=== PATIENT | female | born 1980 | race Caucasian/White ===

== ENCOUNTER 2018-08-02 13:17 | Emergency (ER) | payer OTHER, MEDICAID ==
[~2018-08-02] VITALS: Ht 177.8 cm; Wt 65.8 kg
[2018-08-02] MEDS ORDERED: KEFLEX500 M1 PO (13:50)
[2018-08-02 13:57] VITALS: BP 128/83
== END 2018-08-02 13:58 | disposition home or self-care (01) ==
LOC: M.ERS 13:17
DX: L02.01 Cutaneous abscess of face (principal); L03.211 Cellulitis of face; F17.210 Nicotine dependence, cigarettes, uncomplicated; Z98.890 Other specified postprocedural states; Z88.2 Allergy status to sulfonamides

== ENCOUNTER 2018-10-13 21:35 | Emergency (ER) | payer OTHER, MEDICAID ==
[~2018-10-13] VITALS: Ht 175.3 cm; Wt 65.8 kg
[~2018-10-13 21:35] MED LIST: KEFLEX500 M1 PO
[2018-10-13] MEDS ORDERED: MUPIROCIN22 GM TOP (22:02)
[2018-10-13] MEDS ORDERED: DOXYCYCLINE 10100 M1 PO (22:02)
[2018-10-13 22:32] VITALS: BP 146/61
== END 2018-10-13 22:33 | disposition home or self-care (01) ==
LOC: M.ERS 21:35
DX: L02.02 Furuncle of face (principal); F17.210 Nicotine dependence, cigarettes, uncomplicated; Z98.890 Other specified postprocedural states